=== PATIENT | male | born 1980 | race African-American/Black ===

== ENCOUNTER 2019-09-14 00:08 | Emergency (ER) | payer OTHER ==
[~2019-09-14] VITALS: Ht 188 cm; Wt 90.7 kg
--- NOTE | 2019-09-14 00:10 | NUR ---
PT BIB SELF C/O SI "I WANT TO CUT MY WRIST" PT IS AAOX4, NOT IN RESPIRATORY DISTRESS, V/S STABLE, KEPT RESTED AND COMFORTABLE, BELONGINGS REMOVED AT BEDSIDE FOR SAFE KEEPING, WILL CONTINUE TO MONITOR.
--- NOTE | 2019-09-14 00:21 | NUR ---
URINE SPECIMEN COLLECTED AND SENT TO LAB.
--- NOTE | 2019-09-14 00:25 | NUR ---
SEEN AND EXAMINED BY
--- NOTE | 2019-09-14 00:36 | NUR ---
[employer] EXPERIENCE EXPERT AT BEDSIDE FOR LABS.
[2019-09-14 01:01] LABS: APPEARANCE,URINE Clear (CLEAR); BILIRUBIN,URINE Negative (NEGATIVE); BLOOD, URINE Trace-intact Ery/uL (NEGATIVE); COLOR,URINE Yellow (YELLOW); KETONES,URINE Trace (NEGATIVE); LEUKOCYTE ESTERASE ,URINE Small (NEGATIVE); NITRITE, URINE Positive (NEGATIVE); PROTEIN,URINE Negative (NEGATIVE); UGLUCOSE Negative (NEGATIVE)
[2019-09-14 01:21] LABS: BASOPHILS % (AUTO) 0.8 % (0.0-2.0); EOSINOPHILS % (AUTO) 1.7 % (0.0-6.0); HEMATOCRIT 45 % (39-51); HEMOGLOBIN 14.9 g/dL (13.5-17.5); LYMPHOCYTES # (AUTO) 1.1 /CMM (0.8-4.8); LYMPHOCYTES % (AUTO) 27.7 % (20.0-44.0); MEAN CORPUSCULAR HGB CONC 33 g/dl (31.0-36.0); MEAN CORPUSCULAR VOLUME 88 fL (80-96); MONOCYTES # (AUTO) 0.4 /CMM (0.1-1.30); MONOCYTES % (AUTO) 9.8 % (2.0-12.0); NEUTROPHILS # (AUTO) 2.3 /CMM (1.8-8.9); PLATELET COUNT (AUTO) 349 /CMM (150-450); RED BLOOD CELL COUNT(AUTO) 5.08 MIL/uL (4.5-6.0); WHITE BLOOD COUNT (AUTO) 3.9 K/uL (4.3-11.0)
[2019-09-14 01:22] LABS: CALCIUM, SERUM 9.3 mg/dL (8.5-10.1); CARBON DIOXIDE 30 mmol/L (21-32); CHLORIDE 101 mmol/L (98-107); GLUCOSE 97 mg/dL (74-106); POTASSIUM 4.3 mmol/L (3.5-5.1); SODIUM SERUM 140 mmol/L (136-145); UREA NITROGEN, BLOOD 12 mg/dL (7-18)
[2019-09-14 01:27] LABS: ALANINE AMINOTRANSFERASE 34 U/L (12-78); ALBUMIN 3.6 g/dL (3.4-5.0); ALCOHOL, BLOOD < 3 mg/dL (0-0); ALKALINE PHOSPHATASE 89 U/L (46-116); ASPARTATE AMINOTRANSFERASE 25 U/L (15-37); BILIRUBIN,DIRECT 0.1 mg/dL (0.0-0.2); BILIRUBIN,TOTAL 0.4 mg/dL (0.2-1.0); TOTAL PROTEIN, SERUM 8.1 g/dL (6.4-8.2)
[2019-09-14 01:38] LABS: ACETAMINOPHEN 0 ug/ml (10-30); SALICYLATE 0.6 mg/dL (2.8-20.0)
[2019-09-14 01:42] LABS: RBC,URINE 0-2 /HPF (0-2); WBC,URINE 21-50 /HPF (0-3)
[2019-09-14 01:43] LABS: BACTERIA,URINE Many /HPF (None Seen); SQUAMOUS EPITHELIAL CELL,UR Rare /HPF (None Seen)
--- NOTE | 2019-09-14 02:22 | NUR ---
PT ASLEEP. VSS. PROVIDED WITH BLANKETS.
--- NOTE | 2019-09-14 03:13 | NUR ---
CLINICAL AND FACESHEET FAXED TO [facility] FOR VOLUNTARY ADMISSION.
--- NOTE | 2019-09-14 03:36 | NUR ---
PT awake in bed. Vss.
--- NOTE | 2019-09-14 03:51 | NUR ---
Note suzan in ED - 09/14/19 at 0511 by GAIL ANSELMO BLOUNT LCSW PAGED FOR PSYCH EVAL PER ER MD ORDER.
--- NOTE | 2019-09-14 04:01 | NUR ---
[facility] ACCEPTING MD SNYDER PHONE# FOR REPORT PT WILL BE GOING TO UNIT 2
--- NOTE | 2019-09-14 04:10 | NUR ---
SET UP TRANSPORT [facility] ETA [id number]
[2019-09-14 04:51] VITALS: BP 124/72
--- NOTE | 2019-09-14 04:51 | NUR ---
Report given to Fran STEVENS for ac
== END 2019-09-14 04:53 ==
LOC: ER 00:12
DX: R45.851 Suicidal ideations (principal); F17.210 Nicotine dependence, cigarettes, uncomplicated; Z59.0 Homelessness
CPT/HCPCS: 36415; 80048; 80076; 80305; 80307; 80329; 81001; 85025; 87086; 99285; 99406; G0480; 81000-TC